=== PATIENT | female | born 1995 ===

== ENCOUNTER 2023-04-02 05:15 | Inpatient (IN) | payer SELFPAY ==
[2023-04-02] VITALS (51 sets, daily range): BP systolic 86–141; BP diastolic 43–82; PULSE 65–111; TEMP 97.4–98.2
[~2023-04-02] VITALS: Ht 167.6 cm; Wt 104.5 kg
--- NOTE | 2023-04-02 05:20 | NUR ---
PT TO UNIT VIA WHEELCHAIR WITH SPOUSE WITH COMPLIANTS OF CTX OVER THE LAST 1.5 HOURS. PT DENIES LOF/VAG BLEEDING, STATES GOOD FM. PT ORIENTED TO ROOM, CHANGED INTO GOWN. EFMX2 APPLIED, VS OBTAINED, SVE PERFORMED.
[2023-04-02 06:03] LABS: HEMATOCRIT 37.2 % (37.0-47.0); HEMOGLOBIN 12.9 g/dl (12.5-16.0); MEAN CELL VOLUME 89 fl (80.0-100.0); MEAN CORPUSCULAR HEMOGLOBIN 31 pg (27-31); MEAN CORPUSCULAR HGB CONC 35 g/dl (33.0-37.0); MEAN PLATELET VOLUME 11.2 fl (7.4-10.4); PLATELET COUNT 187 K/mm3 (130-400); RED BLOOD COUNT 4.16 M/mm3 (4.10-5.30); REDCELL DISTRIBUTION WIDTH-CV 13.7 % (11.5-14.5)
--- NOTE | 2023-04-02 06:15 | NUR ---
0556- PT SITTING UP AT BEDSIDE FOR EPIDURAL PLACEMENT. 0557- Carlos DAMON CRNA IN ROOM FOR EPIDURAL PLACEMENT. BP SET TO Q 5 MINUTES, PULSE OX IN PLACE. 0607- TEST DOSE GIVEN BY Carlos DAMON CRNA. PT TOLERATED WELL. 0615- REPOSITIONED TO SEMIFOWLERS.
[2023-04-02] MEDS ORDERED: PRENATAL TABLET PO (06:41)
[2023-04-02] MEDS ORDERED: ZYRTEC5 MG PO (06:42)
[2023-04-02 07:06] LABS: BAND 3 % (0-10); LYMPHOCYTE 19 % (20.0-51.0); METAMYELOCYTE 1 % (0-0); NEUTROPHILS 69 % (42.0-75.2); PLATELET ESTIMATE NORMAL (NORMAL)
--- NOTE | 2023-04-02 12:19 | NUR ---
[id number] THIS RN AT BEDSIDE. ADJUSTING FHR MONITOR AND MATERNAL POSITION.
--- NOTE | 2023-04-02 18:00 | NUR ---
[id number] THIS RN AT BEDSIDE. PT PUSHING WITH CONTRACTIONS. DR SCALES INTERMITTENTLY IN ROOM DURING THIS TIME PERIOD. 1710 DR SCALES IN ROOM COACHING PT THROUGH CONTRACTIONS AND PUSHING. 1745 SPONTANEOUS VAGINAL DELIVERY OF VIABLE FEMALE INFANT. INFANT BULB SUCTIONED AND STIMULATED. DELAYED CORD CLAMPING PRACTICED. CORD CLAMPED BY DR SCALES AND CUT BY FOB. INFANT TO MOTHER'S CHEST. S TECH RN TAKES OVER CARE OF INFANT. 174 SPONTANEOUS DELIVERY OF PLACENTA. PITOCIN BOLUS STARTED PER PROTOCOL. 2ND DEGREE PERINEAL LACERATION NOTED AND REPAIRED BY DR SCALES. FUNDAL MASSAGE DONE. FIRM/MIDLINE. SMALL AMT OF BLEEDING NOTED. PERICARE DONE BY THIS RN. PT REPOSITIONED. CLEAN ICE PACK PAD PLACED. SAFETY PRECAUTIONS AND POC DISCUSSED. PT VERBALIZES UNDERSTANDING.
--- NOTE | 2023-04-02 18:10 | NUR ---
[id number] THIS RN AT BEDSIDE.
--- NOTE | 2023-04-02 21:30 | NUR ---
PT SAT UP TO BEDSIDE TAPE REMOVED. PT TOLERATED EPIDURAL REMOVAL WELL. DENIES ANY PAIN. NO DRAINAGE FROM EPIDURAL SITE.
[2023-04-02] MEDS ORDERED: MOTRIN 800800 MG/TAB PO (21:43)
[2023-04-03 01:40] VITALS: BP 102/52; PULSE 94; TEMP 98.4
[2023-04-03 05:38] VITALS: BP 105/59; PULSE 87
[2023-04-03 07:00] VITALS: BP 119/62; PULSE 88; TEMP 97.7
[2023-04-03] MEDS ORDERED: NEWMANS TOP (08:42)
[2023-04-03] MEDS ORDERED: MOTRIN 800800 MG/TAB PO (08:42)
--- NOTE | 2023-04-03 10:07 | NUR ---
Initial visit; Parents thanked [facility] for offering congratulations and God's blessings for the of their daughter. [facility] thanked family for choosing our hospital.
--- NOTE | 2023-04-03 13:00 | NUR ---
PT AND PT SPOUSE DECIDED TO NOT DISCHARGE THIS EVENING AND STAY THROUGHOUT THE NIGHT DUE TO WEATHER. NOTIFIED OF CHANGE OF DISCHARGE
[2023-04-03 15:30] VITALS: BP 101/57; PULSE 90; TEMP 97.8
[2023-04-03 18:45] VITALS: BP 105/56; PULSE 83; TEMP 97.8
[2023-04-04 06:40] VITALS: BP 121/66; PULSE 91; TEMP 97.5
== END 2023-04-04 11:41 | disposition home or self-care (01) | DRG 807 ==
LOC: LDRO 05:15 → LDR 05:41 → OB 04-03 04:40
PROVIDERS: Obstetrics & Gynecology; ADMIT Obstetrics & Gynecology
PROC: 10E0XZZ Delivery of Products of Conception, External Approach (ICD-10-PCS; principal; 2023-04-02)
PROC: 0KQM0ZZ Repair Perineum Muscle, Open Approach (ICD-10-PCS; 2023-04-02)
PROC: 0UQKXZZ Repair Hymen, External Approach (ICD-10-PCS; 2023-04-02)
DX: O99.214 Obesity complicating childbirth (principal); Z37.0 Single live birth; O70.1 Second degree perineal laceration during delivery; Z3A.39 39 weeks gestation of pregnancy; Z86.16 Personal history of COVID-19; Z23 Encounter for immunization
CPT/HCPCS: J2590; J2795; J7120

== ENCOUNTER → 2023-04-12 | Outpatient (CLI) | payer SELFPAY ==
[~2023-04-12] MED LIST: MOTRIN 800800 MG/TAB PO; NEWMANS TOP; PRENATAL TABLET PO; ZYRTEC5 MG PO
--- NOTE | 2023-04-12 13:57 | NUR ---
Pt, Angela Velazquez, presents for outpatient consult with 10 day old baby girl, Suraj Velazquez, and spouse, Sandeep Velazquez. Pt states she is having sore nipples and is concerned Suraj is not latching properly. Suraj was born on [birth year] and weighed 7# 11.1oz (3490 gms). Pt states Suraj has ~8 feedings per day, and qs voids and stools. Today Suraj weighs 7# 15oz (3602 gms). Pt latches Suraj to the left breast first, which has been the most sore. Suraj seems to latch okay, but pt releases the breast once she is latched and the breast drops, causing Suraj's face to roll into the breast. LC advises pt to support the large, heavy breast with a rolled up baby blanket under the breast. This allows Suraj to get latched deeper and stay on without airway challenges. Pt also reminded on hand placement to help compress the areola under Brentnleighs gum lines. Once latched pt states she does not have any pain. The left nipple has about 5mm wound in the healing stage across the face of the nipple that correlates to a shallow latch. After Suraj had a weight gain of 2.0oz (56 gms). She is content. POC: continue ad shahana breastfeedings with special attention to breast support and compression of areola into Mario Albertoeidavid's mouth with latching. ] F/U: as scheduled with physicians, this LC as needed. Questions invited and answered.
== END ==
LOC: LAC 04-10 17:30
DX: Z39.1 Encounter for care and examination of lactating mother (principal); Z71.89 Other specified counseling